=== PATIENT | male | born 1950 | race Caucasian/White ===

== ENCOUNTER 2020-04-02 12:01 | Outpatient (REF) | payer SELFPAY | END 2020-04-02 12:02 | disposition home or self-care (01) | LOC: HO.BBR 12:01 | PROVIDERS: PCP Internal Medicine | DX: Z13.89 Encounter for screening for other disorder (principal) ==

== ENCOUNTER 2020-04-02 12:29 | Outpatient (REF) | payer SELFPAY ==
[2020-04-02 13:07] LABS: Cholesterol 203 mg/dL
[2020-04-02 13:27] LABS: SARS COV2 IgG Negative (Negative)
== END 2020-04-02 12:30 | disposition home or self-care (01) ==
LOC: HO.LNC 12:29
PROVIDERS: Visit Provider Pathology Anatomic Pathology & Clinical Pathology
DX: Z20.828 Contact with and (suspected) exposure to other viral communicable diseases (principal)
CPT/HCPCS: 82465; 86769

== ENCOUNTER 2020-05-30 08:06 | Outpatient (REF) | payer MEDICARE, SELFPAY | END 2020-05-30 08:07 | disposition home or self-care (01) | LOC: HO.BBR 08:06 | PROVIDERS: Visit Provider Internal Medicine | DX: Z13.89 Encounter for screening for other disorder (principal) ==

== ENCOUNTER 2020-05-30 09:12 | Outpatient (REF) | payer SELFPAY ==
[2020-05-30 11:57] LABS: Cholesterol 202 mg/dL
== END 2020-05-30 09:13 | disposition home or self-care (01) ==
LOC: HO.LNC 09:12
PROVIDERS: Visit Provider Pathology Anatomic Pathology & Clinical Pathology
DX: Z13.89 Encounter for screening for other disorder (principal)
CPT/HCPCS: 36415; 82465

== ENCOUNTER 2020-07-22 07:57 | Outpatient (REF) | payer MEDICARE, SELFPAY | END 2020-07-22 07:58 | disposition home or self-care (01) | LOC: HO.BBR 07:57 | PROVIDERS: Visit Provider Internal Medicine | DX: Z13.89 Encounter for screening for other disorder (principal) ==

== ENCOUNTER 2020-09-24 07:59 | Outpatient (REF) | payer MEDICARE, SELFPAY | END 2020-09-24 08:00 | disposition home or self-care (01) | LOC: HO.BBR 07:59 | PROVIDERS: Visit Provider Internal Medicine | DX: Z13.89 Encounter for screening for other disorder (principal) ==